=== PATIENT | female | born 1995 | race Caucasian/White ===

== ENCOUNTER → 2018-03-22 13:42 | Outpatient (CLI) | payer BC, SELFPAY ==
[2018-03-22 11:34] VITALS: BMI 46.9
[2018-03-22 15:07] LABS: Free T3 3.1 pg/mL (2.18-3.98); T4 Free Direct 0.86 ng/dL (0.76-1.46); Thyroid Stim Hormone (TSH) 1.14 uIU/mL (0.358-3.74)
[2018-03-24 14:44] LABS: HPV Reflexed? NOT INDICATED
== END ==
PROVIDERS: Family Provider Student in an Organized Health Care Education/Training Program; PCP Student in an Organized Health Care Education/Training Program; Referring Provider Obstetrics & Gynecology; Visit Provider Obstetrics & Gynecology
DX: E01.0 Iodine-deficiency related diffuse (endemic) goiter (principal); Z12.4 Encounter for screening for malignant neoplasm of cervix
CPT/HCPCS: 36415; 84439; 84443; 84481; 87624; 88175; G0145

== ENCOUNTER → 2018-03-26 12:18 | Outpatient (CLI) | payer BC, SELFPAY ==
[2018-03-22 11:34] VITALS: BMI 46.9
--- NOTE | 2018-03-26 12:20 | US_ITS ---
STUDY: THYROID ULTRASOUND REASON FOR EXAM: Female, 22 years old. Thyromegaly. TECHNIQUE: Ultrasound evaluation of the thyroid was performed with real-time and static trotter-scale imaging. COMPARISON: None. FINDINGS: RIGHT LOBE: The right lobe of the thyroid gland measures 4.9 x 1.7 x 1.6 cm. There is a homogeneous echotexture. There are no demonstrated solid, cystic or complex lesions. LEFT LOBE: The left lobe of the thyroid gland measures 4.8 x 2.1 x 1.9 cm. There is a homogeneous echotexture. Within the lower pole there is a 5.8 x 4.6 x 7.2 mm complex cystic nodule. ISTHMUS: The isthmus measures 3.0 mm. US/Thyroid IMPRESSION: Enlarged thyroid gland. 5.8 x 4.6 x 7.2 mm complex nodule within the left lobe of the gland. Electronically Signed: Sylwia Borrero MD at 21:03 EST Tel , Service support ,
== END ==
PROVIDERS: Family Provider Student in an Organized Health Care Education/Training Program; PCP Student in an Organized Health Care Education/Training Program; Referring Provider Obstetrics & Gynecology; Visit Provider Obstetrics & Gynecology
DX: E01.0 Iodine-deficiency related diffuse (endemic) goiter (principal)
CPT/HCPCS: 76536

== ENCOUNTER → 2019-06-07 10:35 | Outpatient (CLI) | payer BC, SELFPAY ==
[2019-04-27 08:44] VITALS: BMI 46.9
[2019-06-07 11:28] LABS: hCG Titer Quant., Serum 653 mIU/mL (1-3)
== END ==
LOC: PAVLAB 10:37
PROVIDERS: Nurse Practitioner Women's Health; PCP Student in an Organized Health Care Education/Training Program; Referring Provider Obstetrics & Gynecology; Visit Provider Obstetrics & Gynecology
DX: Z32.01 Encounter for pregnancy test, result positive (principal)
CPT/HCPCS: 36415; 84702

== ENCOUNTER → 2019-06-09 11:24 | Outpatient (CLI) | payer BC, SELFPAY ==
[2019-04-27 08:44] VITALS: BMI 46.9
[2019-06-09 12:50] LABS: hCG Titer Quant., Serum 1459 mIU/mL (1-3)
== END ==
LOC: PAVLAB 11:26
PROVIDERS: Nurse Practitioner Women's Health; PCP Student in an Organized Health Care Education/Training Program; Referring Provider Obstetrics & Gynecology; Visit Provider Obstetrics & Gynecology
DX: Z32.01 Encounter for pregnancy test, result positive (principal)
CPT/HCPCS: 36415; 84702

== ENCOUNTER → 2019-07-13 12:07 | Outpatient (CLI) | payer BC, SELFPAY ==
[2019-07-13 11:15] VITALS: BMI 46.9
[2019-07-13 12:51] LABS: Absolute Lymphocyte Count 1.17 X10^3/uL (0.83-4.51); Absolute Neutrophil Count 4.7 X10^3/uL (2.0-7.7); Basophil# 0.02 X10^3/uL; Basophil% 0.3 % (0-1); Eosinophil# 0.13 X10^3/uL; Hematocrit 32.7 % (37-47); Lymphocyte # 1.17 X10^3/ul (4.0); Lymphocyte % 18.3 % (19-41); Mean Corp Hgb Conc 33.6 g/dL (32-36); Mean Corpuscular Volume 80.3 fL (81-99); Mean Platelet Vol. 8.7 fl (6.2-12.0); Monocyte# 0.37 X10^3/uL; Monocyte% 5.8 % (0-10); NRBC Flagged by Analyzer 0 % (0-5); Neutrophil # 4.67 X10^3/uL (2.7-7.7); Neutrophil % 73.1 % (47-70); Platelet Count 176 K/mm3 (150-450); RBC Distribution Width CV 14.2 % (11.6-14.6); RBC Distribution Width SD 40.9 fl (35.1-43.9); Red Blood Count 4.07 M/mm3 (4.2-5.4); White Blood Count 6.4 K/mm3 (4.4-11.0)
[2019-07-13 13:08] LABS: Glucose Challenge Gest 1H 50g 110 mg/dL (70-140)
[2019-07-13 13:51] LABS: HIV - WCH Non-Reactive (Nonreactive); Hepatitis B Surface Antigen Non-Reactive (Nonreactive); Hepatitis C Antibody Non-Reactive (Nonreactive)
[2019-07-13 15:54] LABS: Amphetamine Urine VISTA NEGATIVE (<1000 ng/mL); Barbiturate Urine VISTA NEGATIVE (< 200 ng/mL); Benzodiazepine Urine VISTA NEGATIVE (< 200 ng/mL); Cocaine Urine VISTA NEGATIVE (< 300 ng/mL); Ecstacy Urine VISTA NEGATIVE (< 500 ng/mL); Methadone Urine VISTA NEGATIVE (< 300 ng/mL); PCP Urine VISTA NEGATIVE (< 25 ng/mL); THC Urine VISTA NEGATIVE (< 50 ng/mL); Vista UDS pH Range 5
[2019-07-13 17:21] LABS: Chlamydia Trachomatis by PCR Negative (Negative); Neisserai gonorrhoeae by PCR Negative (Negative); Probe Check PASS; Sample Adequacy Control PASS; Specimen Processing Control PASS
[2019-07-15 04:37] LABS: Rapid Plasmin Reagin (RPR) NONREACTIVE (NONREACTIVE)
== END ==
LOC: LAB 12:09
PROVIDERS: PCP Student in an Organized Health Care Education/Training Program; Referring Provider Obstetrics & Gynecology; Visit Provider Obstetrics & Gynecology
DX: Z34.90 Encounter for supervision of normal pregnancy, unspecified, unspecified trimester (principal)
CPT/HCPCS: 36415; 80307; 82950; 85025; 86592; 86703; 86762; 86803; 86850; 86900; 86901; 87086; 87340; 87491; 87591

== ENCOUNTER → 2019-11-17 14:28 | Outpatient (CLI) | payer BC, SELFPAY ==
[2019-10-20 10:00] VITALS: BMI 48.5
[2019-11-17 14:57] LABS: Absolute Lymphocyte Count 1.11 X10^3/uL (0.83-4.51); Absolute Neutrophil Count 6.2 X10^3/uL (2.0-7.7); Basophil# 0.02 X10^3/uL; Basophil% 0.3 % (0-1); Eosinophils% 1.3 % (0-5); Hematocrit 32.1 % (37-47); Hemoglobin 10.7 g/dL (12.0-15.0); Lymphocyte # 1.11 X10^3/ul (4.0); Lymphocyte % 14.2 % (19-41); Mean Corp Hgb Conc 33.3 g/dL (32-36); Mean Corpuscular Hgb 28.6 pg (27.0-32.0); Mean Corpuscular Volume 85.8 fL (81-99); Mean Platelet Vol. 9.1 fl (6.2-12.0); Monocyte# 0.39 X10^3/uL; NRBC Flagged by Analyzer 0 % (0-5); Neutrophil # 6.19 X10^3/uL (2.7-7.7); Neutrophil % 78.9 % (47-70); Platelet Count 159 K/mm3 (150-450); RBC Distribution Width CV 14.4 % (11.6-14.6); Red Blood Count 3.74 M/mm3 (4.2-5.4); White Blood Count 7.8 K/mm3 (4.4-11.0)
[2019-11-17 15:43] LABS: Glucose Challenge Gest 1H 50g 141 mg/dL (70-140); Thyroid Stim Hormone (TSH) 1.24 uIU/mL (0.358-3.74)
== END ==
PROVIDERS: PCP Student in an Organized Health Care Education/Training Program; Referring Provider Obstetrics & Gynecology; Visit Provider Obstetrics & Gynecology
DX: O99.280 Endocrine, nutritional and metabolic diseases complicating pregnancy, unspecified trimester (principal); E04.1 Nontoxic single thyroid nodule; Z3A.00 Weeks of gestation of pregnancy not specified
CPT/HCPCS: 36415; 82950; 84443; 85025

== ENCOUNTER → 2019-11-21 06:49 | Outpatient (CLI) | payer BC, SELFPAY ==
[2019-11-17 14:48] VITALS: BMI 48.5
[2019-11-21 07:37] LABS: Glucose GTT-Gestation. Fasting 88 mg/dL (<105)
[2019-11-21 08:50] LABS: Glucose GTT-Gestational 1 Hr 165 mg/dL (<190)
[2019-11-21 10:15] LABS: Glucose GTT-Gestational 2 Hr 166 mg/dL (<165)
[2019-11-21 11:31] LABS: Glucose GTT-Gestational 3 Hr 59 L (<145)
== END ==
PROVIDERS: PCP Student in an Organized Health Care Education/Training Program; Referring Provider Obstetrics & Gynecology; Visit Provider Obstetrics & Gynecology
DX: O99.810 Abnormal glucose complicating pregnancy (principal); Z3A.00 Weeks of gestation of pregnancy not specified
CPT/HCPCS: 36415; 82951; 82952

== ENCOUNTER → 2019-12-01 | Outpatient (CLI) | payer BC, SELFPAY ==
[2019-12-01 10:19] VITALS: BMI 46.9
== END | disposition home or self-care (01) ==
LOC: LABSPEC 12:44
PROVIDERS: Visit Provider Obstetrics & Gynecology
DX: O26.899 Other specified pregnancy related conditions, unspecified trimester (principal); N89.8 Other specified noninflammatory disorders of vagina; Z3A.00 Weeks of gestation of pregnancy not specified
CPT/HCPCS: 87070; 87205

== ENCOUNTER → 2019-12-14 12:02 | Outpatient (CLI) | payer BC, SELFPAY ==
[2019-11-17 14:48] VITALS: BMI 48.5
[2019-12-14 11:02] VITALS: BMI 46.9
--- NOTE | 2019-12-14 12:03 | US_ITS ---
STUDY: SECOND AND THIRD TRIMESTER OBSTETRICAL ULTRASOUND REASON FOR EXAM: Female, 23 years old GROWTH LMP: 05/02/2019. TECHNIQUE: Transabdominal TECHNICAL QUALITY: Limited. Examination limited due to obesity. PRIOR ULTRASOUND: None. FINDINGS: There is a single intrauterine fetus. The fetus is in a breech presentation. There is demonstrated cardiac activity with a heart rate of 152 bpm. There is a normal amniotic fluid volume. The largest amniotic fluid pocket measures 6.9 cm. The amniotic fluid index (DANIEL) is 17.05 cm. The placenta is posterior in location and is not low lying. There are Grade 1 placental changes. The cervix measures 5.0 cm in length. The bilateral adnexal regions are normal. BIOMETRY: BPD: 8.53 cm: 34 weeks, 2 days HC: 30.54 cm: 33 weeks, 6 days AC: 31.13 cm: 35 weeks, 0 days FL: 6.2 cm: 32 weeks, 0 days CI: 80.4% FL/BPD: 72.6% FL/HC: FL/AC: 20% HC/AC: 0.98 age by current US: 33 weeks, 5 days. HANNY by current US: 01/27/2020. Estimated weight: 2348 grams, +/- 347 grams, 91 %. Age by LMP: 32 weeks, 1 days. HANNY by LMP: 02/07/2020. US/OB Limited With Biometrics IMPRESSION: Single live intrauterine gestation with a mean gestational age of 33 weeks and 5 days. Electronically Signed: Martir Rivero, at 14:49 EDT , Service support ,
[2019-12-14 12:13] LABS: Absolute Lymphocyte Count 1.13 X10^3/uL (0.83-4.51); Absolute Neutrophil Count 6.4 X10^3/uL (2.0-7.7); Basophil# 0.02 X10^3/uL; Basophil% 0.2 % (0-1); Eosinophil# 0.08 X10^3/uL; Hematocrit 32.6 % (37-47); Hemoglobin 11.1 g/dL (12.0-15.0); Lymphocyte # 1.13 X10^3/ul (4.0); Lymphocyte % 13.7 % (19-41); Mean Corpuscular Hgb 29.4 pg (27.0-32.0); Mean Corpuscular Volume 86.5 fL (81-99); Mean Platelet Vol. 8.7 fl (6.2-12.0); Monocyte# 0.53 X10^3/uL; Monocyte% 6.4 % (0-10); NRBC Flagged by Analyzer 0 % (0-5); Neutrophil # 6.43 X10^3/uL (2.7-7.7); Neutrophil % 78.3 % (47-70); Platelet Count 161 K/mm3 (150-450); RBC Distribution Width CV 14.2 % (11.6-14.6); RBC Distribution Width SD 44.2 fl (35.1-43.9); Red Blood Count 3.77 M/mm3 (4.2-5.4); White Blood Count 8.2 K/mm3 (4.4-11.0)
[2019-12-14 12:36] LABS: Thyroid Stim Hormone (TSH) 1.64 uIU/mL (0.358-3.74)
== END ==
LOC: OPUS 12:03
PROVIDERS: Obstetrics & Gynecology; PCP Student in an Organized Health Care Education/Training Program; Referring Provider Obstetrics & Gynecology; Visit Provider Obstetrics & Gynecology
DX: O99.810 Abnormal glucose complicating pregnancy (principal); O99.019 Anemia complicating pregnancy, unspecified trimester; D64.9 Anemia, unspecified; O99.280 Endocrine, nutritional and metabolic diseases complicating pregnancy, unspecified trimester; E04.1 Nontoxic single thyroid nodule; Z3A.00 Weeks of gestation of pregnancy not specified
CPT/HCPCS: 36415; 76816; 84443; 85025

== ENCOUNTER → 2020-01-11 12:09 | Outpatient (CLI) | payer BC, SELFPAY ==
[2019-11-17 14:48] VITALS: BMI 48.5
[2020-01-11 11:03] VITALS: BMI 46.9
--- NOTE | 2020-01-11 12:10 | US_ITS ---
STUDY: SECOND AND THIRD TRIMESTER OBSTETRICAL ULTRASOUND REASON FOR EXAM: Female, 24 years old GROWTH LMP: 05/03/2019. TECHNIQUE: Transabdominal TECHNICAL QUALITY: Adequate. PRIOR ULTRASOUND: Comparison is made with prior study dated 12/14/2019. FINDINGS: There is a single intrauterine fetus. The fetus is in a cephalic presentation. There is demonstrated cardiac activity with a heart rate of 140 bpm. There is a normal amniotic fluid volume. The largest amniotic fluid pocket measures 5.9 cm. The amniotic fluid index (DANIEL) is 17.8 cm. The placenta is posterior in location and is not low lying. There are Grade 2 placental changes. The cervixThe adnexal regions are not visualized. BIOMETRY: BPD: 9.3 cm: 37 weeks, 6 days HC: 33.6 cm: 38 weeks, 4 days AC: 35.8 cm: 39 weeks, 6 days FL: 7.4 cm: 38 weeks, 0 days CI: 82% FL/BPD: 80% FL/HC: FL/AC: 21% HC/AC: 0.94 age by current US: 38 weeks, 4 days. HANNY by current US: 01/21/2020. Estimated weight: 3640 grams, +/- 531 grams, 98 %. age by prior US: 37 weeks, 5 days. HANNY by prior US: 01/27/2020. Age by LMP: 36 weeks, 1 days. HANNY by LMP: 02/07/2020. US/OB Limited With Biometrics IMPRESSION: Single live intrauterine gestation with a mean gestational age of 37 weeks and 5 days. The measurements obtained today follow within normal expected range. Electronically Signed: Martir Rivero, at 8:53 EDT , Service support ,
--- NOTE | 2020-01-11 12:58 | US_ITS ---
STUDY: OBSTETRICAL ULTRASOUND - BIOPHYSICAL PROFILE REASON FOR EXAM: Female, 24 years old WELL BEING TECHNIQUE: Transabdominal TECHNICAL QUALITY: Adequate. FINDINGS: There is a single intrauterine fetus. The fetus is in a cephalic presentation. There is demonstrated cardiac activity with a heart rate of 139 bpm. There is a normal amniotic fluid volume. The largest amniotic fluid pocket measures 7.9 cm. The amniotic fluid index (DANIEL) is 19 cm. The placenta is posterior in location and is not low lying. There are Grade 2 placental changes. BIOPHYSICAL PROFILE: Breathing Movements (FBM): 2 Gross Body Movements (GBM): 2 Tone (FT): 2 Amniotic Fluid Volume (AFV): 2 TOTAL SCORE: 8 / 8 US/Biophysical Profile IMPRESSION: Normal biophysical profile of 11/25. Electronically Signed: Stacey Hernandez, at 6:41 EDT Tel , Service support ,
== END ==
PROVIDERS: PCP Student in an Organized Health Care Education/Training Program; Referring Provider Obstetrics & Gynecology; Visit Provider Obstetrics & Gynecology
DX: O99.810 Abnormal glucose complicating pregnancy (principal); Z3A.00 Weeks of gestation of pregnancy not specified
CPT/HCPCS: 76816; 76818; 87077; 87081; 87186

== ENCOUNTER → 2020-01-19 | Outpatient (CLI) | payer BC, SELFPAY ==
[2020-01-19 15:29] VITALS: BMI 50.1
== END | disposition home or self-care (01) ==
LOC: LABSPEC 16:40
PROVIDERS: PCP Student in an Organized Health Care Education/Training Program; Referring Provider Obstetrics & Gynecology; Visit Provider Obstetrics & Gynecology
DX: R39.15 Urgency of urination (principal)
CPT/HCPCS: 87086; 87088

== ENCOUNTER → 2020-01-24 17:56 | Outpatient (CLI) | payer BC, SELFPAY ==
[2020-01-11 11:03] VITALS: BMI 46.9
[2020-01-19 15:29] VITALS: BMI 50.1
== END ==
LOC: MTDU 17:56
PROVIDERS: PCP Student in an Organized Health Care Education/Training Program; Visit Provider Obstetrics & Gynecology
DX: Z11.59 Encounter for screening for other viral diseases (principal)
CPT/HCPCS: 87635; C9803; U0003

== ENCOUNTER 2020-02-05 07:08 | Inpatient (IN) | payer BC, SELFPAY ==
[2019-11-17 14:48] VITALS: BMI 48.5
[2020-02-03 10:20] VITALS: BMI 50.6
--- NOTE | 2020-02-04 17:56 | PCM.HPOB.BLA ---
- Problem List (1) 37 weeks gestation of Status: Acute Comment: COVID TESTING ORDERED 01/19/2020sc (2) Abnormal glucose affecting Status: Acute Comment: 3hr GTT- normal (3) Anemia affecting Status: Acute Comment: oral iron, repeat cbc in 4 weeks. (4) GBS (group B Streptococcus carrier), +RV culture, currently Status: Acute Comment: pcn IN LABOR (5) Left thyroid nodule Status: Acute Comment: TSH q trimester (6) Obesity affecting Status: Acute Qualifiers: Comment: encouraged healthy weight gain, nl 1 tm glucola. testing after 32 weeks. NL growth 12/13. plan IOL after 39 weeks if favorable cervix. (7) Status: Acute Qualifiers: Comment: decined NIPT and carrier, ntd screening. anatomy reviewed. (8) Supervision of other normal Status: Acute Comment: PRR HANNY:02/07/2020 Armando PC: Cuong Burnette Spouse: Alfredo History and Physical Date of Admission: 02/05/20 Intake Vital Signs 02/03/20 Height 5 ft 4.75 in 02/03/20 Weight: 302 lb 02/03/20 BMI 50.6 02/03/20 BP 136/78 H Intake Visit Reasons: est ob NST [employer] Required: No Is patient in pain?: No Allergies shellfish derived Allergy (Verified 02/03/20 10:21) Anaphylaxis Medications citalopram 40 mg tablet 40 mg PO DAILY #30 tab 04/27/19 [Rx Confirmed 02/03/20] vitamin#30 30 mg iron-10 mg iron-folic acid 1 mg-omg3 capsule cap PO 11/17/19 [History Confirmed 02/03/20] Last Menstral Period: 05/03/19 Zika: Zika virus screening: Negative : No PFSH PFSH Medical History Left thyroid nodule (Acute) Depression (Acute) Multinodular goiter (Acute) PCOS (polycystic ovarian syndrome) (Acute) Hypertension (Chronic) Surgical History No history of previous surgery (Acute) Family History Grandmother Colon cancer Hypertension Diabetes Mother Thyroid disorder Melanoma Social History (Updated 02/03/20 @ 10:[address] Elizabeth Faye MD) household members: family number of children: 2 Smoking Status: Never smoker alcohol intake: never substance use type: does not use caffeine: Yes what type of physical activity do you participate in: none seatbelt use: always do you feel safe at home: Yes additional social history: Alfredo- [place] [employer] Pregancy History 2 Elective abortions Hx Para 2 Spontaneous abortions Hx # Term Pregnancies Ectopic pregnancies Hx # Pregnancies Multiple births # of living children Past Pregnancies Del. Date Name GA/Weeks Outcome Route Bth Weight Gen Labor Lgth Anesthesia Del Locatn Provider FOB Unknown 2015riel 39 live - full term 7.5lbs Male 26 hours epidural Isabelle CHARLES Unknown Cuong 2016 38 live - full term 7lbs 11oz Male 8 hours epidural [place] CHARLES Delivery Date: [place] Melisa Garibay Delivery Date: [facility] Melisa Garibay HPI est ob NST: Details: NADIA BROWN is a 24 year old who presents for routine OB visit, her cervix is favorable so we will plan an IOL for morbid obesity and distance from hospital. OB Visit HANNY Calculator Estimated Delivery Date Method Current WG Current Estimate 02/07/20 LMP (Certain) 39w 3d Expected Delivery Route/Plan if vertex Labor Preferences- labor support person: Alfredo pain management options preferred: desires natural, but open to epidural cut cord/dad catch: yes - both : yes PP control planned: OCPs discussed possible routes of delivery and associated risks: discussed possible delivery modalities and possible indications for each including R/B/A of , VAVD, and CS. questions answered. special requests: None Specific Issue/Plans flu vaccine: given tdap vaccine: 11/17/19 rhogam: n/a LARC form signed: Yes Problem list reviewed and updated with the most current plan of care details and appropriate orders placed. Relevant counseling for the gestational age provided. Continue routine care and follow up unless otherwise noted in visit notes/problem list details Initial Weight: 280 lb Date EGA Weight BP Urine Prot Glucose FHR FuHt Pres Dilation Effaced St Visit Note 08/09/19 14w 0d 282 lb (+2 lb) 136/72 Negative Negative 145 SM- no vb cramping 09/22/19 20w 2d 286 lb (+6 lb) 120/80 Negative Negative 147 MH-NO VB, LOF. Had anatomy US prior to this and told partial previa. Pelvic rest. 10/20/19 24w 2d 289 lb 8 oz (+9 lb 8 oz) 136/78 Negative Negative 145 24 SM- no vb lof good fm no regular ctx 11/17/19 28w 2d 291 lb (+11 lb) 136/82 150 SM- no vb lof good fm no regualr ctx had scan and was told previa resolved 12/01/19 30w 2d 293 lb (+13 lb) 134/80 Negative Negative 150 31 GP - denies LOF/VB/DFM/Ctx. Increased discharge with fishy odor - BV and yeast swab collected. 12/22/19 33w 2d 296 lb (+16 lb) 128/78 Negative Negative 140 GP - No LOF, VB, DFM. Occasional contractions at home. LARC form signed - declines. 12/30/19 34w 3d 296 lb 6 oz (+16 lb 6 oz) 130/70 Negative Negative 150 36 Breech GP - No LOF, VB, DFM. More frequent contractions. Most recently breech - interested in ECV if breech at next growth 01/04/20 35w 1d 298 lb (+18 lb) Negative Negative 140 Cephalic 01/11/20 36w 1d 298 lb (+18 lb) 150/78 Negative Negative 135 38 Cephalic 1 50 -3 GP - no LOF, VB, DFM, ctx. GBS done today. GP - no LOF, VB, DFM, ctx. GBS done today. Baby not tracing well for NST - BPP ordered 01/19/20 37w 2d 299 lb 2 oz (+19 lb 2 oz) 130/82 Negative Negative 130 39 Cephalic 1 50 -3 GP - one gush of fluid last night. No further leaking. No pooling of fluid on exam. Cervux unchanged. No regular ctx. Isolated elevated BP - repeat normal. GP - one gush of fluid last night. No further leaking. No pooling of fluid on exam. Cervix unchanged. No regular ctx. Isolated elevated BP immediately after walking into room- repeat normal. 01/26/20 38w 2d 304 lb (+24 lb) 130/76 Negative Negative 130 38 Cephalic 1 SM- cervix unfavorable would not recommend IOL at this time, discussed with patient. continue exp management. Diagnostics Diagnostics Diagnostics Gest Glucose Tolerance MG/DL 11/21/19 Hgb 11.1 g/dL (12.0-15.0) L 12/14/19 Hct 32.6 % (37-47) L 12/14/19 Details: HIV: Urine Culture: Sequential Screen: NIPT Screen: ROS Const Reports system reviewed and no additional complaints, except as docu Card Reports system reviewed and no additional complaints, except as docu Resp Reports system reviewed and no additional complaints, except as docu GI Reports system reviewed and no additional complaints, except as docu, Reports nausea Reports system reviewed and no additional complaints, except as docu Musc Reports system reviewed and no additional complaints, except as docu Exam Const General: cooperative, healthy appearing, comfortable, anxious HENMT Head: normal to inspection Nose: external nose normal Face and sinus: normal facial exam Neck Neck: normal visual inspection, full ROM, no lymphadenopathy Thyroid: thyroid normal Chest Chest palpation & inspection: normal inspection of the chest Resp Effort & Inspection: normal respiratory effort GI Inspection: normal to inspection Palpation: soft, other (gravid uterus) Other: infant vertex and appropriate size for gestational age Other: Cervical Exam: Extrem General: pedal edema Office Procedures OB NST Non-Stress Test Indications for Monitoring: Yes Morbid obesity Heart Rate Baseline: 130 Heart Rate Variability: moderate Movement: Present Heart Rate Accelerations: Present Decelerations: Absent Contractions: Absent Impression: Yes Reactive Non-Stress Test Category 1 Results POC Urinalysis 2 Dip (Clinic) Office Urine Glucose Negative Last Edit by Melisa Garibay on 02/03/20 10:22 Office Urine Protein Negative Last Edit by Melisa Garibay on 02/03/20 10:22 Assessment & Plan Problems 1. 37 weeks gestation of Z3A.37 COVID TESTING ORDERED 01/19/2020sc 2. GBS (group B Streptococcus carrier), +RV culture, currently O99.820 pcn IN LABOR 3. Abnormal glucose affecting O99.810 3hr GTT- normal 4. Anemia affecting O99.019 oral iron, repeat cbc in 4 weeks. 5. Obesity affecting O99.210 encouraged healthy weight gain, nl 1 tm glucola. testing after 32 weeks. NL growth 12/13. plan IOL after 39 weeks if favorable cervix. 6. Left thyroid nodule E04.1 TSH q trimester 7. Z34.90 decined NIPT and carrier, ntd screening. anatomy reviewed. 8. Supervision of other normal Z34.80 PRR HANNY:02/07/2020 Armando PC: Rob Burnetteen Spouse: Alfredo Saenz Patient presents IOL, plan management for with pitocin/AROM. Pain management: plans epidural. GBS positive- pcn. Management of any complications: morbid obesity I have reviewed the [facility] and made any clinically relevant updates. Orders Orders: OB NST Today O99.210, Z34.80 POC Urinalysis 2 Dip (Clinic) Today O99.210, Z34.80 Coding Level of Care Code OB Routine Diagnoses 37 weeks gestation of Z3A.37 GBS (group B Streptococcus carrier), +RV culture, currently O99.820 Abnormal glucose affecting O99.810 Anemia affecting O99.019 Obesity affecting O99.210 Left thyroid nodule E04.1 Z34.90 Supervision of other normal Z34.80 Additional Codes Non-Stress Test (25196)
[2020-02-05] VITALS (47 sets, daily range): BP systolic 119–197; BP diastolic 58–100; PULSE 81–132; RESP 16–18; TEMP 36–36.9; O2SAT 88–100; BMI 51.7
[2020-02-05] MEDS: Lactated Ringers 1,000 ML 50 ML IV (07:30)
[2020-02-05 07:47] LABS: Absolute Lymphocyte Count 1.18 X10^3/uL (0.83-4.51); Absolute Neutrophil Count 4.8 X10^3/uL (2.0-7.7); Basophil# 0.02 X10^3/uL; Basophil% 0.3 % (0-1); Eosinophil# 0.09 X10^3/uL; Eosinophils% 1.4 % (0-5); Hematocrit 34.3 % (37-47); Hemoglobin 11.5 g/dL (12.0-15.0); Lymphocyte # 1.18 X10^3/ul (4.0); Lymphocyte % 18.1 % (19-41); Mean Corp Hgb Conc 33.5 g/dL (32-36); Mean Corpuscular Hgb 29.1 pg (27.0-32.0); Mean Corpuscular Volume 86.8 fL (81-99); Monocyte# 0.38 X10^3/uL; Monocyte% 5.8 % (0-10); NRBC Flagged by Analyzer 0 % (0-5); Neutrophil # 4.83 X10^3/uL (2.7-7.7); Neutrophil % 73.9 % (47-70); Platelet Count 159 K/mm3 (150-450); RBC Distribution Width CV 14.1 % (11.6-14.6); RBC Distribution Width SD 43.7 fl (35.1-43.9); Red Blood Count 3.95 M/mm3 (4.2-5.4); White Blood Count 6.5 K/mm3 (4.4-11.0)
[2020-02-05] MEDS: Oxytocin 30 units/NS 500 ml 30 UNITS/500 ML IV.SOLN IV (08:14)
[2020-02-05 09:55] LABS: Partial Thromboplast Time 28.9 Seconds (24.1-36.2)
[2020-02-05 09:58] LABS: AST(SGOT) 15 U/L (15-37); Alanine Aminotransfer ALT/SGPT 17 U/L (13-56); EST Glomerular Filtration Rate 160 mL/min (>60); Est Glom Filt Rate - Afr Amer 193 mL/min (>60); Estimated Creatinine Clearance 147.23 ml/min; Uric Acid 5.3 mg/dL (2.6-6.0)
[2020-02-05] MEDS: Lactated Ringers 500 ML 999 ML IV ×2 (13:31→15:47)
[2020-02-05] MEDS: fentaNYL-bupivacaine (epidural) 100 ML BAG EPIDURAL (14:05)
--- NOTE | 2020-02-05 14:38 | OP.PCM_ITS ---
Problem List (1) 37 weeks gestation of Status: Acute Comment: COVID TESTING ORDERED 01/19/2020sc (2) Abnormal glucose affecting Status: Acute Comment: 3hr GTT- normal (3) Anemia affecting Status: Acute Comment: oral iron, repeat cbc in 4 weeks. (4) GBS (group B Streptococcus carrier), +RV culture, currently Status: Acute Comment: pcn IN LABOR (5) Left thyroid nodule Status: Acute Comment: TSH q trimester (6) Obesity affecting Status: Acute Qualifiers: Comment: encouraged healthy weight gain, nl 1 tm glucola. testing after 32 weeks. NL growth 12/13. plan IOL after 39 weeks if favorable cervix. (7) Status: Acute Qualifiers: Comment: decined NIPT and carrier, ntd screening. anatomy reviewed. (8) Supervision of other normal Status: Acute Comment: PRR HANNY:02/07/2020 Armando PC: Cuong Burnette Spouse: Alfredo Vaginal Delivery Maternal Presentation: Medically Indicated Induction iol morbid obesity Method of Induction: Pitocin Amniotic Membrane Rupture Type: Artificial Amniotic Fluid Description: Clear Final HANNY: 02/07/20 Gestational age: 39 Weeks and 5 Days Date of Procedure: 02/05/20 Pre-Operative Diagnosis: iol obesity Post-Operative Diagnosis: same plus moderate shoulder dystocia due to asynclitic presentation Surgery/ Procedure Performed: Spontaneous Vaginal Delivery Type of Anesthesia: Epidural Description of Procedure: Patient began pushing and the head was noted to be asynclitic and arrested at the +1 station. Recurrent periodic variable decelerations were noted and therefore IV fluids oxygen and position changes were employed. Patient pushed on either side and on hands and knees for little while and made some progress to the +2 station. Variable decelerations were noting to be deeper and longer lasting into the 60s for 60 to 90 seconds. As discussed with the patient and the decision for a vacuum delivery. It was discussed increased risk of bleeding underneath the scalpel or precipitating her shoulder dystocia. Estimated weight is larger than her other 2 infants which had no previous difficulty with vaginal delivery. Patient and her agreed and the decision to proceed with operative vaginal delivery with vacuum was made. Vacuum applied and head rotated from LOP to TERESA as it descended through the canal and with 2 pulls with no pop offs with 2 contractions and total duration less than 3 minutes, she delivered the head in the TERESA presentation. The head was delivered atraumatically. A shoulder dystocia was immediately noted and Rosy was attempted however there was a very minimal room anteriorly but ample room posteriorly and therefore the posterior arm was delivered by abducting the right arm at the elbow sweeping in a crossed 's chest delivering it without complication followed by the anterior shoulder total duration less than 45 seconds, was placed in the maternal abdomen after the rest of the body was delivered and the cord was clamped and cut and gentle traction was applied to the cord and the placenta delivered spontaneously immediately following it was noted to be intact with three-vessel cord. The perineum and vagina were inspected and noted to have no laceration. EBL was 100 cc. Patient and tolerated delivery well. Presentation: TERESA Placental Delivery Description: Spontaneous Placenta Disposition: [facility] Cord Entanglement: None A gender: Male Episiotomy Description: None Laceration: None Medications given after delivery: IV Pitocin Complications: - - moderate shoulder dystocia Multi Select Codes - Urinary/Genital Urinary/Genital CPT Codes: 85055 Vaginal Delivery [facility]
[2020-02-05] MEDS: Oxytocin 30 units/NS 500 ml 30 UNITS/500 ML IV.SOLN 334 UNITS IV (16:02)
[2020-02-05] MEDS: 0.9% Saline Lock 10 ML Syringe IV (18:51)
[2020-02-05] MEDS: Acetaminophen 500 MG Tablet 1000 MG PO (21:14)
--- NOTE | 2020-02-06 00:33 | NURSING ---
Dr. Faye notified via phone that patient's is being transferred to [facility] so patient is requesting a discharge. Telephone order received for discharge.
[2020-02-06 00:41] VITALS: BP 135/67; PULSE 93; RESP 18; TEMP 36.4
[2020-02-06 00:42] VITALS: BP 135/67; PULSE 93
--- NOTE | 2020-02-06 00:48 | NURSING ---
Patient already had flu shot per chart from Dr. Faye's office.
[2020-02-06] MEDS: Naproxen 250 MG Tablet 500 MG PO (01:06)
--- NOTE | 2020-02-06 01:17 | DCINST_ITS ---
Discharge Diet: No Restrictions Discharge Activity: Return to Normal Activity, May not drive while taking narcotic pain medications., May Shower May resume sexual activity in: 4-6 weeks Call your doctor if your incision/area has: Continuous Slow Oozing, Sudden Increased Bleeding, Increased Pain/ Swelling, Increased Redness, Foul Smelling Discharge Additional Instructions: If you experience any of the following, contact your healthcare provider. * Bleeding that soaks a pad every hour for 2 hours * Fever 100.4 or higher * Unrelieved incision or abdominal pain * Swelling, redness, discharge or bleeding from your incision or episiotomy site * Your incision begins to separate * Problems urinating (including inability to urinate or burning while urinating). * Visual changes * Severe headache * Flu-like symptoms * Pain or redness in one of both of your breasts * Pain, warmth, tenderness or swelling in your legs, especially the calf area * Frequent nausea and vomiting * Symptoms of depression or anxiety If you experience any of the following, call 911 or go to the nearest Emergency Room. * Chest pain * Problems breathing * Seizure activity * Partial or complete paralysis of a body part, slurred speech, weakness or drooping of the face, or a sudden inability to walk or hold your balance Allergies/Adverse Reactions: Allergies shellfish derived Allergy (Verified 02/05/20 07:41) Anaphylaxis swelling of throat Medications to take at Discharge vitamin#30 30 mg iron-10 mg iron-folic acid 1 mg-omg3 capsule 1 cap PO DAILY 11/17/19 Citalopram Hydrobromide [Citalopram HBr] 40 mg PO DAILY 02/05/20 Please Follow Up With: Elizabeth Faye MD - [phone] When: Call to make an appointment with your doctor in 6 weeks. If you had elevated Blood pressure or 4th degree laceration you will need to be seen in 2 weeks. Primary Care Physician: Christopher Pelaez DO [Primary Care Provider] - Test Results: Test results from this visit will be discussed in further detail at your follow- up appointment, if applicable.
--- NOTE | 2020-02-06 01:17 | PCM.DCVAG ---
Discharge Diet: No Restrictions Discharge Activity: Return to Normal Activity, May not drive while taking narcotic pain medications., May Shower May resume sexual activity in: 4-6 weeks Call your doctor if your incision/area has: Continuous Slow Oozing, Sudden Increased Bleeding, Increased Pain/ Swelling, Increased Redness, Foul Smelling Discharge Additional Instructions: If you experience any of the following, contact your healthcare provider. Bleeding that soaks a pad every hour for 2 hours Fever 100.4 or higher Unrelieved incision or abdominal pain Swelling, redness, discharge or bleeding from your incision or episiotomy site Your incision begins to separate Problems urinating (including inability to urinate or burning while urinating). Visual changes Severe headache Flu-like symptoms Pain or redness in one of both of your breasts Pain, warmth, tenderness or swelling in your legs, especially the calf area Frequent nausea and vomiting Symptoms of depression or anxiety If you experience any of the following, call 911 or go to the nearest Emergency Room. Chest pain Problems breathing Seizure activity Partial or complete paralysis of a body part, slurred speech, weakness or drooping of the face, or a sudden inability to walk or hold your balance Allergies/Adverse Reactions: Allergies shellfish derived Allergy (Verified 02/05/20 07:41) Anaphylaxis swelling of throat Medications to take at Discharge vitamin#30 30 mg iron-10 mg iron-folic acid 1 mg-omg3 capsule 1 cap PO DAILY 11/17/19 Citalopram Hydrobromide [Citalopram HBr] 40 mg PO DAILY 02/05/20 Please Follow Up With: Elizabeth Faye MD - [phone] When: Call to make an appointment with your doctor in 6 weeks. If you had elevated Blood pressure or 4th degree laceration you will need to be seen in 2 weeks. Primary Care Physician: Christopher Pelaez DO [Primary Care Provider] - Test Results: Test results from this visit will be discussed in further detail at your follow-up appointment, if applicable.
--- NOTE | 2020-02-06 01:40 | NURSING ---
Called to patient room by patient for clot. Clot was golf ball sized. Patient's uterus 2 below umbilicus, firm, midline. Scant bleeding. Educated patient on normal bleeding amounts and when to call doctor. Patient verbalizes understanding.
== END 2020-02-06 02:45 | disposition home or self-care (01) | DRG 807 ==
PROVIDERS: Admitting Provider Obstetrics & Gynecology; PCP Student in an Organized Health Care Education/Training Program; Referring Provider Obstetrics & Gynecology; Visit Provider Obstetrics & Gynecology
DX: O66.0 Obstructed labor due to shoulder dystocia (principal); Z37.0 Single live birth; E66.01 Morbid (severe) obesity due to excess calories; O99.214 Obesity complicating childbirth; E04.1 Nontoxic single thyroid nodule; O99.284 Endocrine, nutritional and metabolic diseases complicating childbirth; O99.824 Streptococcus B carrier state complicating childbirth; O99.02 Anemia complicating childbirth; D64.9 Anemia, unspecified; O76 Abnormality in fetal heart rate and rhythm complicating labor and delivery; Z3A.39 39 weeks gestation of pregnancy
CPT/HCPCS: 59025; 59050; 82565; 84450; 84460; 84550; 85025; 85610; 85730; 86850; 86900; 86901; 99218; J7120; A4216; G0378

== ENCOUNTER → 2021-01-25 | Outpatient (CLI) | payer BC, SELFPAY ==
--- NOTE | 2021-01-25 | VUL_PTH ---
PATIENT: NADIA BROWN LOC: [facility] U#:[id number] AGE/SX: 25/F ROOM: RE01/25/[address]: Dr. Elizabeth Faye MD : 1995 BED: DIS: 01/25/2021 SPEC #: [id number] RECD: 01/25/21 17:00 STATUS: BERNICE RECheri #: [id number] MIKEL: 01/25/21 00:[address]: Elizabeth Faye DEPT: SURGICAL PATHOLOGY RECD BY: Majo Blum ENTERED: 01/28/21 09:52 SP TYPE: VULVA BX OTHR DR: Dr. Christopher Pelaez DO Tissues: A - Vulva, NOS B - Labium, NOS Procedures: Special Stain Group I Surgery Specimen Level IV GMS Stain (control) HEADER OPERATION: Vulvar biopsy PRE-OP DIAGNOSIS: Vaginal irritation TISSUE SUBMITTED: A ? Perineal body, B ? Left labial tissue MICROSCOPIC DIAGNOSIS A. Perineal body, biopsy: Granulation with associated acute and chronic inflammation. Negative for fungal organisms. See comment. B. Left labial tissue, biopsy: Superficial squamous mucosa with minimal acute and chronic inflammation and hyperkeratosis. AM:vanessa 01/29/2021 COMMENT A. GMS stain with matched control was used in the evaluation of this case. MICROSCOPIC DESCRIPTION Slides are reviewed. GROSS DESCRIPTION A - Received in fixative is one container labeled with the patient's name and designated perineal body. The specimen consists of a piece of nelson-white skin measuring 0.2 x 0.2 x 0.1 cm. The specimen is totally submitted in one cassette. B - Received in fixative is one container labeled with the patient's name and designated left labia. The specimen consists of a punch biopsy of nelson-white skin measuring 0.3 x 0.1 x 0.1 cm. The specimen is totally submitted in one cassette. / SJ:vanessa 01/28/21 TC:2 CPT: 94208 x2, 22378
== END | disposition home or self-care (01) ==
PROVIDERS: PCP Student in an Organized Health Care Education/Training Program; Referring Provider Obstetrics & Gynecology; Visit Provider Obstetrics & Gynecology
DX: N89.8 Other specified noninflammatory disorders of vagina (principal)
CPT/HCPCS: 87070; 87077; 87205; 88305; 88312

== ENCOUNTER → 2021-04-01 | Outpatient (CLI) | payer BC, SELFPAY ==
[2021-04-05 14:15] LABS: HPV Reflexed? NOT INDICATED
== END | disposition home or self-care (01) ==
LOC: LABSPEC 16:21
PROVIDERS: PCP Student in an Organized Health Care Education/Training Program; Visit Provider Obstetrics & Gynecology
DX: Z12.4 Encounter for screening for malignant neoplasm of cervix (principal)
CPT/HCPCS: 88175; G0145

== ENCOUNTER 2021-04-29 09:07 | Outpatient (CLI) | payer BC, SELFPAY ==
--- NOTE | 2021-04-29 09:13 | US_ITS ---
STUDY: THYROID ULTRASOUND REASON FOR EXAM: Female, 25 years old. Thyroid nodule. TECHNIQUE: Ultrasound evaluation of the thyroid was performed with real-time and static trotter-scale imaging. COMPARISON: Comparison is made with prior examination of 03/26/2018. FINDINGS: RIGHT LOBE: The right lobe of the thyroid gland measures 4.9 cm x 1.6 cm x 1.7 cm. There is a homogeneous echotexture. There are no demonstrated solid, cystic or complex lesions. LEFT LOBE: The left lobe of the thyroid gland measures 4.6 cm x 1.5 cm x 1.4 cm. There is a homogeneous echotexture. There is a 9 mm x 8 mm x 6 mm well-defined hypoechoic solid nodule in the lower pole. This is essentially unchanged. ISTHMUS: The isthmus measures 2 mm. The regional lymph nodes are normal. US/Thyroid IMPRESSION: Stable 9 mm x 8 mm x 6 mm hypoechoic solid nodule in the lower pole of the left lobe of the thyroid Electronically Signed: Martir Rivero MD at 13:24 EST , Service support ,
== END 2021-04-29 23:59 | disposition short-term general hospital (02) ==
LOC: US 09:11
PROVIDERS: PCP Student in an Organized Health Care Education/Training Program; Referring Provider Obstetrics & Gynecology; Visit Provider Obstetrics & Gynecology
DX: E04.1 Nontoxic single thyroid nodule (principal)
CPT/HCPCS: 76536

== ENCOUNTER → 2023-11-06 | Outpatient (CLI) | payer BC, SELFPAY ==
[2023-11-10 04:08] LABS: Chlamydia By Nucleic Acid AMP Negative (Negative); Gonococcus By Nucleic Acid AMP Negative (Negative)
[2023-11-10 20:55] LABS: HPV Reflexed? NOT INDICATED
== END | disposition home or self-care (01) ==
PROVIDERS: PCP Student in an Organized Health Care Education/Training Program; Referring Provider Registered Nurse; Visit Provider Registered Nurse
DX: N93.0 Postcoital and contact bleeding (principal); Z12.4 Encounter for screening for malignant neoplasm of cervix; Z20.2 Contact with and (suspected) exposure to infections with a predominantly sexual mode of transmission
CPT/HCPCS: 87491; 87591; 88175; G0145

== ENCOUNTER → 2023-11-17 | Outpatient (CLI) | payer BC, SELFPAY ==
--- NOTE | 2023-11-17 14:20 | US_ITS ---
STUDY: ULTRASOUND OF THE FEMALE PELVIS - COMPLETE REASON FOR EXAM: Female, 27 years old. bleeding after intercourse LMP: 10/16/2023 TECHNIQUE: Transabdominal and Transvaginal TECHNICAL QUALITY: Adequate. COMPARISON: None. FINDINGS: The uterus is anteverted and is in a midline position. The uterus measures 7.8 x 5.3 x 3.9 cm. Normal uterine cervix. The endometrium measures 3 mm in thickness, and is hyperechoic. There is no demonstrated endometrial mass. There is no demonstrated myometrial mass. I.U.D. - The patient does not have an I.U.D. The right ovary is visualized. The right ovary measures 2.6 x 2.0 x 2.1 cm. There is no right ovarian cyst or ovarian mass. There is no visualized right adnexal mass or complex lesion. There is normal arterial and normal venous vascularity. The left ovary is visualized. The left ovary measures 2.5 x 1.8 x 2.0 cm. There is no left ovarian cyst or ovarian mass. There is no visualized left adnexal mass or complex lesion. There is normal arterial and normal venous vascularity. There is no fluid in the cul-de-sac. The pre void volume of the bladder was 305 ml. The post void volume of the bladder was ml. Polycystic ovary disease: No. US/Pelvic w/ Transvaginal IMPRESSION: Normal female pelvis. Electronically Signed: Héctor Edwards MD at 8:42 EDT ,
== END | disposition home or self-care (01) ==
PROVIDERS: Referring Provider Registered Nurse; Visit Provider Registered Nurse
DX: N93.0 Postcoital and contact bleeding (principal)
CPT/HCPCS: 76830; 76856